=== PATIENT | female | born 1970 | race African-American/Black ===

== ENCOUNTER → 2016-10-07 | Outpatient (CLI) | payer SELFPAY ==
[~2016-10-07] MED LIST: NAPROXEN500 MG PO; PREDNISONE20 MG PO
== END | disposition home or self-care (01) ==
LOC: RAD 08:32
DX: N85.2 Hypertrophy of uterus (principal); N85.8 Other specified noninflammatory disorders of uterus; K76.89 Other specified diseases of liver; Z86.018 Personal history of other benign neoplasm
CPT/HCPCS: 74177

== ENCOUNTER → 2017-04-03 | Outpatient (CLI) | payer OTHER ==
[~2017-04-03] MED LIST changes: +IRON325 M1 PO
== END | disposition home or self-care (01) ==
LOC: CDC 09:56
DX: Z01.810 Encounter for preprocedural cardiovascular examination (principal)
CPT/HCPCS: 93000

== ENCOUNTER 2017-04-09 21:33 | Inpatient (IN) | payer OTHER ==
[~2017-04-09] VITALS: Ht 172.7 cm; Wt 90.2 kg
[2017-04-10] MEDS ORDERED: VITAMIN D5000 UNI1 PO (06:46)
[2017-04-10 06:57] VITALS: BP 109/55
[2017-04-10 12:16] LABS: INTERNAL CONTROL VALID? YES
[2017-04-10 13:08] VITALS: BP 118/65
[2017-04-10 14:55] LABS: HEMATOCRIT 38.1 % (36.0-46.0); MCV 81.1 FL (83-99)
[2017-04-10 15:48] VITALS: BP 115/70
[2017-04-10 20:15] VITALS: BP 116/65
[2017-04-11] VITALS (7 sets, daily range): BP systolic 92–116; BP diastolic 46–68
[2017-04-11 07:35] LABS: HEMATOCRIT 35.7 % (36.0-46.0); MCH 24.4 PG (29.0-34.0); MCHC 30.8 G/DL (30.0-36.0); MCV 79.3 FL (83-99); MEAN PLAT.VOLUME 11.7 uM^3 (9.5-12.4); PLATELET COUNT 240 K/uL (156-360); RBC DIS.WIDTH-CV 14.6 % (11.8-14.6); RBC DIS.WIDTH-SD 42.1 % (39-53); WHITE BLOOD COUNT 10.8 K/uL (4.1-10.2)
[2017-04-11 08:34] LABS: ANION GAP 7 MEQ/L (2-14); CHLORIDE 101 MEQ/L (99-109); GFR ESTIMATE (CALCULATED) > 59 mL/min/; GLUCOSE 141 mg/dL (70-99); POTASSIUM 4.4 MEQ/L (3.7-5.4); SAMPLE HEMOLYSIS CHECK 0; SAMPLE ICTERIC CHECK 0; SAMPLE LIPEMIA CHECK 0; SODIUM 134 MEQ/L (136-147); UREA NITROGEN (BUN) 5 mg/dL (9-23)
[2017-04-12 03:46] VITALS: BP 111/63
[2017-04-12 07:56] VITALS: BP 103/54
[2017-04-12] MEDS ORDERED: MOTRIN800 MG PO (08:25)
[2017-04-12] MEDS ORDERED: ENDOCET 5-3251 EACH PO (08:25)
[2017-04-12 11:20] VITALS: BP 104/56
[2017-04-12 15:47] VITALS: BP 120/63
[2017-04-12 19:35] VITALS: BP 115/73
== END 2017-04-12 20:26 | disposition home or self-care (01) | DRG 743 ==
LOC: 2SOUTH → ENRESERV 21:33 → 2SOUTH 04-10 05:24 → ENRESERV 04-10 10:24 → 2EASTP 04-10 12:44 → 2SOUTH 04-10 14:38 → 2EASTP 04-12 20:26
PROVIDERS: Obstetrics & Gynecology
DX: N92.0 Excessive and frequent menstruation with regular cycle (principal); D25.1 Intramural leiomyoma of uterus; D25.2 Subserosal leiomyoma of uterus; N70.11 Chronic salpingitis; D64.9 Anemia, unspecified; E66.9 Obesity, unspecified; Z68.30 Body mass index [BMI] 30.0-30.9, adult; Z80.3 Family history of malignant neoplasm of breast; Z98.51 Tubal ligation status; Z90.721 Acquired absence of ovaries, unilateral; Z88.1 Allergy status to other antibiotic agents
CPT/HCPCS: 80048; 84703; 85014; 85018; 85027; 86850; 86900; 86901; 88307; J0690; J1170; J1885; J2250; J2270; J2405; J2765; J3010; J7120; Q0175

== ENCOUNTER 2017-04-18 11:53 | Inpatient (IN) | payer OTHER ==
[~2017-04-18] VITALS: Ht 172.7 cm; Wt 90.9 kg
[~2017-04-18 11:53] MED LIST changes: +ENDOCET 5-3251 EACH PO; +MOTRIN800 MG PO; +VITAMIN D5000 UNI1 PO
[2017-04-18 13:44] LABS: HEMATOCRIT 35.6 % (36.0-46.0); MCH 24.8 PG (29.0-34.0); MCHC 31.5 G/DL (30.0-36.0); MCV 78.9 FL (83-99); MEAN PLAT.VOLUME 11.2 uM^3 (9.5-12.4); PLATELET COUNT 264 K/uL (156-360); RBC DIS.WIDTH-CV 14.1 % (11.8-14.6); RBC DIS.WIDTH-SD 40.1 % (39-53); RED BLOOD COUNT 4.51 M/uL (3.80-5.20); WHITE BLOOD COUNT 6.8 K/uL (4.1-10.2)
[2017-04-18 13:56] LABS: INTER. NORMALIZED RATIO 1.1
[2017-04-18 13:57] LABS: CHLORIDE 108 mEq/L (99-109); POTASSIUM 3.5 mEq/L (3.7-5.4); SODIUM 139 mEq/L (136-147)
[2017-04-18 13:58] LABS: GLUCOSE 100 mg/dL (70-99)
[2017-04-18 14:00] LABS: ANION GAP 7 MEQ/L (2-14)
[2017-04-18 14:02] LABS: GFR ESTIMATE (CALCULATED) > 59 mL/min/
[2017-04-18 14:03] LABS: UREA NITROGEN (BUN) 7 mg/dL (9-23)
[2017-04-18 14:09] LABS: TROP-I INTERPRETATION NEGATIVE; TROPONIN-I < 0.01 ng/mL (0.0-0.30)
[2017-04-18] MEDS ORDERED: BENGAY GREASELE57 GM TP (18:45)
[2017-04-18] MEDS ORDERED: TEA TREE OIL30 ML TP (18:47)
[2017-04-18 21:54] LABS: INTER. NORMALIZED RATIO 1.2; PROTHROMBIN TIME 13.4 SEC (10.2-12.9)
[2017-04-18 21:57] LABS: PTT 30.1 SEC (25-37)
[2017-04-19] VITALS (8 sets, daily range): BP systolic 94–112; BP diastolic 20–60
[2017-04-19 05:18] LABS: HEMATOCRIT 32.4 % (36.0-46.0); MCH 25.4 PG (29.0-34.0); MCHC 32.4 G/DL (30.0-36.0); MCV 78.5 FL (83-99); MEAN PLAT.VOLUME 11.2 uM^3 (9.5-12.4); NRBC (%) 0.3 /100 WBC (0-0); PLATELET COUNT 262 K/uL (156-360); RBC DIS.WIDTH-CV 14.2 % (11.8-14.6); RED BLOOD COUNT 4.13 M/uL (3.80-5.20); WHITE BLOOD COUNT 7.5 K/uL (4.1-10.2)
[2017-04-19 06:04] LABS: INTER. NORMALIZED RATIO 1.2; PROTHROMBIN TIME 13.8 SEC (10.2-12.9)
[2017-04-19 06:09] LABS: PTT 94.2 SEC (25-37)
[2017-04-19 12:41] LABS: HEMATOCRIT 33.3 % (36.0-46.0); MCV 78.4 FL (83-99)
[2017-04-19 19:14] LABS: MCV 79.3 FL (83-99)
[2017-04-19 19:22] LABS: INTER. NORMALIZED RATIO 1.1; PROTHROMBIN TIME 13.1 SEC (10.2-12.9)
[2017-04-19 19:25] LABS: PTT 66.9 SEC (25-37)
[2017-04-20 00:52] LABS: MCV 78.6 FL (83-99)
[2017-04-20 03:11] VITALS: BP 92/62
[2017-04-20 04:55] LABS: HEMATOCRIT 36.8 % (36.0-46.0); MCH 24.7 PG (29.0-34.0); MCHC 31.5 G/DL (30.0-36.0); MCV 78.3 FL (83-99); MEAN PLAT.VOLUME 10.4 uM^3 (9.5-12.4); PLATELET COUNT 332 K/uL (156-360); RBC DIS.WIDTH-CV 13.9 % (11.8-14.6); RBC DIS.WIDTH-SD 39.6 % (39-53); WHITE BLOOD COUNT 7.6 K/uL (4.1-10.2)
[2017-04-20 05:41] LABS: CHLORIDE 107 mEq/L (99-109); POTASSIUM 3.3 mEq/L (3.7-5.4); SODIUM 139 mEq/L (136-147)
[2017-04-20 05:43] LABS: GLUCOSE 111 mg/dL (70-99)
[2017-04-20 05:45] LABS: ANION GAP 9 MEQ/L (2-14); TOTAL BILIRUBIN 0.2 mg/dL (0.0-1.0)
[2017-04-20 05:47] LABS: ALKALINE PHOSPHATASE 53 IU/L (3-129); GFR ESTIMATE (CALCULATED) > 59 mL/min/
[2017-04-20 05:48] LABS: UREA NITROGEN (BUN) 5 mg/dL (9-23)
[2017-04-20 07:41] VITALS: BP 90/58
[2017-04-20 11:01] VITALS: BP 104/54
[2017-04-20 13:18] LABS: MCV 80.2 FL (83-99)
[2017-04-20 17:00] VITALS: BP 105/79
[2017-04-20 18:53] LABS: HEMATOCRIT 35.2 % (36.0-46.0); MCV 79.3 FL (83-99)
[2017-04-20 20:30] VITALS: BP 95/65
[2017-04-20 20:48] LABS: INTER. NORMALIZED RATIO 1.2; PROTHROMBIN TIME 13.3 SEC (10.2-12.9)
[2017-04-20 20:51] LABS: PTT 80.3 SEC (25-37)
[2017-04-21 00:12] VITALS: BP 90/48
[2017-04-21 04:48] VITALS: BP 95/49
[2017-04-21 05:36] LABS: EOSINOPHIL (%) 7.8 % (0-5); EOSINOPHIL COUNT 0.5 K/uL (0-0.3); HEMATOCRIT 33.2 % (36.0-46.0); IMMATURE GRANULOCYTE (%) 0.2 % (0.0-0.7); LYMPHOCYTE COUNT 2.3 K/uL (1.0-2.8); MCH 24.3 PG (29.0-34.0); MCHC 30.7 G/DL (30.0-36.0); MEAN PLAT.VOLUME 11.1 uM^3 (9.5-12.4); MONOCYTE (%) 8.9 % (3-12); MONOCYTE COUNT 0.6 K/uL (0-0.8); PLATELET COUNT 303 K/uL (156-360); RBC DIS.WIDTH-SD 40.1 % (39-53); WHITE BLOOD COUNT 6.4 K/uL (4.1-10.2)
[2017-04-21 06:00] LABS: ANION GAP 7 MEQ/L (2-14); CHLORIDE 106 MEQ/L (99-109); GFR ESTIMATE (CALCULATED) > 59 mL/min/; GLUCOSE 102 mg/dL (70-99); POTASSIUM 3.9 MEQ/L (3.7-5.4); SAMPLE HEMOLYSIS CHECK 0; SAMPLE ICTERIC CHECK 0; SAMPLE LIPEMIA CHECK 0; SODIUM 139 MEQ/L (136-147); UREA NITROGEN (BUN) 5 mg/dL (9-23)
[2017-04-21 06:57] LABS: INTER. NORMALIZED RATIO 1.2; PROTHROMBIN TIME 13.4 SEC (10.2-12.9)
[2017-04-21 07:00] LABS: PTT 94.9 SEC (25-37)
[2017-04-21 07:20] VITALS: BP 90/58
[2017-04-21 11:06] VITALS: BP 97/49
[2017-04-21 12:51] LABS: INTER. NORMALIZED RATIO 1.2; PROTHROMBIN TIME 13.3 SEC (10.2-12.9)
[2017-04-21 12:54] LABS: PTT 75.7 SEC (25-37)
[2017-04-21] MEDS ORDERED: LOVENOX100 MG/1 M SC (13:44)
[2017-04-21] MEDS ORDERED: COUMADIN5 MG PO (13:44)
== END 2017-04-21 16:02 | disposition home or self-care (01) | DRG 176 ==
LOC: EME 11:53 → EDOF 22:33 → 4EAST 22:33 → ENRESERV 22:38 → 4EAST 04-19 00:49 → ENRESERV 04-21 11:30 → 4EAST 04-21 16:02
PROVIDERS: Emergency Medicine; Hospitalist; Internal Medicine
DX: I26.99 Other pulmonary embolism without acute cor pulmonale (principal); N99.840 Postprocedural hematoma of a genitourinary system organ or structure following a genitourinary system procedure; I82.890 Acute embolism and thrombosis of other specified veins; Y83.6 Removal of other organ (partial) (total) as the cause of abnormal reaction of the patient, or of later complication, without mention of misadventure at the time of the procedure; D56.9 Thalassemia, unspecified; M54.16 Radiculopathy, lumbar region; R30.0 Dysuria; Z90.710 Acquired absence of both cervix and uterus
CPT/HCPCS: 71020; 71275; 72131; 74177; 76857; 80048; 80053; 84484; 85014; 85018; 85025; 85027; 85379; 85610; 85730; 87086; 93005; 99281; 99285; J1650; J2270

== ENCOUNTER 2017-09-11 13:20 | Emergency (ER) | payer OTHER ==
[~2017-09-11] VITALS: Ht 172.7 cm; Wt 94.0 kg
[~2017-09-11 13:20] MED LIST changes: +BENGAY GREASELE57 GM TP; +COUMADIN5 MG PO; +LOVENOX100 MG/1 M SC; +TEA TREE OIL30 ML TP
[2017-09-11 14:42] LABS: HEMATOCRIT 41.4 % (36.0-46.0); HEMOGLOBIN 13.1 G/DL (11.9-15.5); MCH 25.3 PG (29.0-34.0); MCHC 31.6 G/DL (30.0-36.0); MCV 80.1 FL (83-99); PLATELET COUNT 217 K/uL (156-360); RBC DIS.WIDTH-CV 15.5 % (11.8-14.6); RED BLOOD COUNT 5.17 M/uL (3.80-5.20); WHITE BLOOD COUNT 6.7 K/uL (4.1-10.2)
[2017-09-11 14:50] LABS: CHLORIDE 108 mEq/L (99-109); POTASSIUM 3.7 mEq/L (3.7-5.4); SODIUM 143 mEq/L (136-147)
[2017-09-11 14:51] LABS: GLUCOSE 74 mg/dL (70-99)
[2017-09-11 14:55] LABS: CREATININE 0.8 mg/dL (0.6-1.3); GFR ESTIMATE (CALCULATED) > 59 mL/min/
[2017-09-11 14:56] LABS: UREA NITROGEN (BUN) 7 mg/dL (9-23)
[2017-09-11 17:36] VITALS: BP 114/75
== END 2017-09-11 17:41 | disposition home or self-care (01) ==
LOC: EME 13:20
PROVIDERS: Physician Assistant
DX: R07.89 Other chest pain (principal); Z86.711 Personal history of pulmonary embolism; D64.9 Anemia, unspecified; Z88.1 Allergy status to other antibiotic agents
CPT/HCPCS: 71046; 71275; 80048; 85027; 85379; 93005; 99281; 99285